=== PATIENT | male | born 1980 | race Caucasian/White ===

== ENCOUNTER → 2017-05-03 | Outpatient (CLI) | payer BC ==
[2017-05-03 10:55] LABS: BASOPHILS % (AUTO) 0.6 % (0.2-1.0); EOSINOPHILS # (AUTO) 0.1 x10^3/uL (0.0-0.2); EOSINOPHILS % (AUTO) 2.4 % (0.9-2.9); HEMATOCRIT 40.9 % (42.0-54.0); LYMPHOCYTES # (AUTO) 1.9 X10^3/uL (1.3-2.9); LYMPHOCYTES % (AUTO) 32.3 % (21.0-51.0); MEAN CORPUSCULAR HEMOGLOBIN 30.2 pg (27.0-34.0); MEAN CORPUSCULAR HGB CONC 34.2 g/dL (33.0-35.0); MEAN CORPUSCULAR VOLUME 88.5 fL (80.0-100.0); MEAN PLATELET VOLUME 9.5 fL (7.4-11.0); MONOCYTES # (AUTO) 0.6 x10^3/uL (0.3-0.8); NEUTROPHILS # (AUTO) 3.2 x10^3/uL (2.2-4.8); NEUTROPHILS % (AUTO) 53.7 % (42.0-75.0); PLATELET COUNT 162 X10^3/uL (150.0-450.0); RED BLOOD COUNT 4.62 X10^6/uL (4.7-6.0); RED CELL DISTRIBUTION WIDTH 13.9 % (11.6-16.5); WHITE BLOOD COUNT 5.9 X10^3/uL (3.6-10.0)
[2017-05-03 11:16] LABS: ALANINE AMINOTRANSFERASE 27 Units/L (12-78); ALBUMIN 4.3 g/dL (3.4-5.0); ALKALINE PHOSPHATASE 91 Units/L (46-116); ASPARTATE AMINO TRANSFERASE 23 Units/L (15-37); BLOOD UREA NITROGEN 13 mg/dL (7-18); CALCIUM 9.2 mg/dL (8.5-10.1); CARBON DIOXIDE 28.8 mmol/L (21-32); CHLORIDE 104 mmol/L (98-107); CREATININE 0.79 mg/dL (0.70-1.30); SODIUM 141 mmol/L (136-145); TOTAL PROTEIN 7.3 g/dL (6.4-8.2); TSH (3RD GENERATION) 1.498 uIU/mL (0.358-3.74); eGFR BLACK RACES > 60 (>60); eGFR NON BLACK RACES > 60 (>60)
--- NOTE | 2017-05-03 11:30 | RAD ---
Examination: Chest, PA and lateral views History: Chest pain Comparison reference: None Findings: Normal heart size. The lungs are clear of infiltrates. There is a 7.0 mm nodular density in the periphery of the left mid lung. This is probably in the lung rather than rib. It is not definite ly calcified. There is no hilar enlargement or pleural fluid. Nonacute posttraumatic deformity is not ed involving the lateral end of the right clavicle. Impression: Small peripheral left mid lung nodular density etiology undetermined. This may represent a granuloma. However, comparison with prior imaging, or follow-up, recommended to determine stability . Reported By:
== END ==
LOC: LAB 10:20
PROVIDERS: ATTEND Family Medicine
DX: R00.2 Palpitations (principal); R06.02 Shortness of breath
CPT/HCPCS: 36415; 71020; 80053; 84443; 85025

== ENCOUNTER → 2017-06-01 | Outpatient (CLI) | payer BC ==
--- NOTE | 2017-06-02 08:36 | CT ---
Examination: CT of the chest with contrast. Clinical history: Right upper lobe chest pain with pulmonary nodule seen on recent chest x-ray. Technique: Multiple axial images were obtained from the lung apices down to the lung bases, following the intravenous administration of 100 mL of Omnipaque 350. Dose reduction techniques including autom ated exposure control (AEC) and adjustment of mA and kV were utilized. Comparison: Chest x-ray dated 05/03/2017. Findings: The heart is normal in size. The thoracic aorta and great vessels are within normal limits. A small thymic remnant is seen in the anterior mediastinum. No enlarged lymph nodes, by CT criteria, are noted in the mediastinum, aly or axilla bilaterally. No central obstructing bronchial lesion is noted. No pleural or pericardial effusion is noted. There is a 6 mm high-density pulmonary nodule seen in the lateral aspect of the left upper lobe (seri es 5, image 36). Findings probably represent a calcified granuloma. The patient was given intravenous contrast limiting evaluation. A CT of the chest, without intravenous contrast, could be obtained for proper characterization of this lesion. There is an additional 7 mm indeterminate pulmonary nodule is seen in the right middle lobe anteriorl y (series 5, image 39). A follow-up CT of the chest is recommended in 3-6 months. Stability of this n odule needs to be documented for at least 2 years to assume benignity. There is a small 3 mm nonobstructing calculus associated with the midportion of the right kidney. The re are at least 3 tiny 2-3 mm nonobstructing calculi associated with the left kidney. A 1 cm accessor y spleen is incidentally noted at the medial aspect of the spleen. The remainder of the visualized po rtion of the upper abdomen is unremarkable. There is a mild thoracic scoliosis seen convex to the right, which may be positional in nature. Degen erative changes are noted in the spine. No acute osseous abnormality is noted. Impression: 1. Pulmonary nodules, as described above. A follow-up CT of the chest, without intravenous contrast, is recommended in 3-6 months to re-evaluate (see discussion above). 2. Nonobstructing calculi associated with the kidneys bilaterally. Reported By:
== END ==
LOC: RAD 09:53
PROVIDERS: ATTEND Nurse Practitioner Adult Health
DX: R91.1 Solitary pulmonary nodule (principal)
CPT/HCPCS: 71260; A4222

== ENCOUNTER → 2017-06-19 | Outpatient (CLI) | payer BC ==
--- NOTE | 2017-06-19 17:25 | RAD ---
HISTORY: Right shoulder pain. Patient states he had injury to right shoulder approximately 14 years ago. Study: Three views of the right shoulder. Comparison: Chest x-ray dated May 03, 2017. Findings: Remote fracture/dislocation of the right distal clavicle appears unchanged given technique. The visua lized lung is clear. No acute cortical disruption or dislocation can be identified. No significant s oft tissue swelling or injury can be seen. IMPRESSION: No acute osseous abnormality. Reported By:
== END ==
LOC: RAD 16:41
PROVIDERS: ATTEND Family Medicine
DX: M25.511 Pain in right shoulder (principal)
CPT/HCPCS: 73030